=== PATIENT | male | born 1945 | race Caucasian/White ===

== ENCOUNTER 2018-09-25 13:00 | Outpatient (RCR) | payer MEDICARE, OTHER ==
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
--- NOTE | 2018-11-17 12:10 | PT PLAN OF CARE ---
Physician: Dr. Fredrick Askew Patient is being seen: 2x/week Therapist: Alix Abbott, PT Medical Diagnosis: LBP, R hip pain, R shoulder pain Treatment Diagnosis: Same, R SI pain Date of Onset: 05/20/08 Date of Initial Evaluation: 09/03/18 Date patient was last seen: 09/25/18 Number of treatments: 7 Number of cancellations/No shows: [*] INTERVENTIONS: Manual Therapy, Shoulder ROM/stretching/Strengthening, SI mobilization, HEP GOALS/PATIENT'S GOAL: Unknown One month: Aldo sits one hour with R SI pain 0-1/10. Two months: Aldo exercises with LBP 1-2/10, impingement pain 1-2/10 with weight training. Patient Compliance: Good Prognosis: Excellent Reasons for discontinuing therapy: S: Aldo e-mailed to say he's 80% better at his shoulder and SI joint and is done with PT. O: At his last session, Aldo had a weak rotator cuff, rated shoulder pain 4/10, SI pain 5/10. A/P: Aldo Lieberman has discharged himself from PT. He has a HEP for both regions. I'll DC PT. Thank you. DEEJAY
== END 2018-09-25 18:00 | disposition home or self-care (01) ==
LOC: PT 13:00
PROVIDERS: ATTEND Otolaryngology
DX: M54.40 Lumbago with sciatica, unspecified side (principal); M25.551 Pain in right hip
CPT/HCPCS: 97162

== ENCOUNTER 2018-10-04 13:40 | Emergency (ER) | payer MEDICARE, OTHER ==
[2018-10-04 13:45] VITALS: BP 133/63
[2018-10-04] MEDS ORDERED: [UNRECOGNIZED DRUG - OTHER] PO (13:52)
[2018-10-04] MEDS ORDERED: ESOM40CA42 PO (14:11)
[2018-10-04] MEDS ORDERED: ATOR40TA24 PO (14:11)
[2018-10-04] MEDS ORDERED: METO25TA91 PO (14:11)
[2018-10-04] MEDS ORDERED: ASPI81TA86 PO (14:11)
[2018-10-04] MEDS ORDERED: LISI20TA29 PO (14:11)
[2018-10-04] MEDS ORDERED: oxyCODON/ACET (*)5/325MG (CII) 1 TAB TAB PO ONE (14:20)
[2018-10-04] MEDS ORDERED: OXYC-865 PO (14:26)
[2018-10-04] MEDS ORDERED: [UNRECOGNIZED DRUG - CODE] PO (14:26)
[2018-10-04] MEDS ORDERED: CHLO473M12 MM (14:30)
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
== END 2018-10-04 14:38 | disposition home or self-care (01) ==
LOC: ER 13:43
DX: K12.0 Recurrent oral aphthae (principal)
CPT/HCPCS: 99283; A9270

== ENCOUNTER → 2018-12-26 | Outpatient (CLI) | payer MEDICARE, OTHER ==
[~2018-12-26] MED LIST: ASPI81TA86 PO; ATOR40TA24 PO; CHLO473M12 MM; ESOM40CA42 PO; HYDR-385 PO; LISI20TA29 PO; METO25TA91 PO; OXYC-865 PO; [UNRECOGNIZED DRUG - CODE] PO; [UNRECOGNIZED DRUG - OTHER] PO
== END ==
LOC: US 00:44
PROVIDERS: ATTEND Internal Medicine Cardiovascular Disease
DX: I25.10 Atherosclerotic heart disease of native coronary artery without angina pectoris (principal); E78.00 Pure hypercholesterolemia, unspecified
CPT/HCPCS: 93017; 93350

== ENCOUNTER 2018-12-27 15:45 | Emergency (ER) | payer MEDICARE, OTHER ==
[~2018-12-27 15:45] MED LIST changes: -HYDR-385 PO
[2018-12-27 15:50] VITALS: BP 162/74
[2018-12-27] MEDS ORDERED: APAP/HYDROCODONE 325/5 TAB PO ONE (16:10)
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
[2018-12-27 16:26] LABS: PLATELET COUNT, AUTOMATED 237 K/uL (150-450)
--- NOTE | 2018-12-27 17:01 | RADIOLOGY IMAGING REPORT ---
FACILITY: [facility] - [place] PATIENT NAME: Basim Lieberman : 1945 MR: [id number] V: [id number] EXAM DATE: ORDERING PHYSICIAN: JILLIAN DELATORRE TECHNOLOGIST: Location: [facility] Patient: Basim Lieberman : 1945 Visit/Account:[id number] Date of Sevice: 12/27/2018 Exam type: 3 views cervical spine History: pain down right arm Comparison: None. Findings: There is no acute fracture of the cervical spine. AP alignment and facet alignment is normal. Patient has a mild scoliosis of the thoracic spine on the AP view. Patient is osteopenic with mild degenerat rosina changes. Some anterior flowing osteophytes are noted. Prevertebral soft tissues are unremarkable. IMPRESSION: 1. Mild degenerative changes in the cervical spine but no acute fracture. Report Dictated By: Andriy Oliver MD at 12/27/2018 4:52 PM Report E-Signed By: Andriy Oliver MD at 12/27/2018 4:53 PM WSN:[email or web address]
--- NOTE | 2018-12-27 17:03 | RADIOLOGY IMAGING REPORT ---
FACILITY: [facility] PATIENT NAME: Basim Lieberman : 1945 MR: [id number] V: [id number] EXAM DATE: ORDERING PHYSICIAN: JILLIAN DELATORRE TECHNOLOGIST: Location: [facility] Patient: Basim Lieberman : 1945 Visit/Account:[id number] Date of Sevice: 12/27/2018 Exam type: ELBOW 3 VIEW RIGHT History: pain and swelling Comparison: None. Findings: There is no definite acute fracture the right elbow. Cortical irregularity of the lateral epicondyles and olecranon appear to be chronic. Radial head is intact. No definitive elbow effusion although the fat pad is visualized. Radiopaque densities in the soft tissues suggest small radiopaque foreign bod ies. IMPRESSION: 1. No definite acute fracture of the right elbow. 2. Chronic well-corticated ossific densities near the lateral epicondyles and olecranon. 3. Several punctate radiopaque foreign bodies project in the skin anteriorly and laterally. Report Dictated By: Andriy Oliver MD at 12/27/2018 4:54 PM Report E-Signed By: Andriy Oliver MD at 12/27/2018 4:55 PM WSN:[id number]
[2018-12-27] MEDS ORDERED: HYDR-385 PO (17:10)
== END 2018-12-27 17:27 | disposition home or self-care (01) ==
LOC: ER 15:54
DX: M77.11 Lateral epicondylitis, right elbow (principal); M50.33 Other cervical disc degeneration, cervicothoracic region
CPT/HCPCS: 72040; 73080; 85025; 86140; 99284; A4565; A9270